=== PATIENT | female | born 1945 | race Hispanic/Latino ===

== ENCOUNTER 2018-10-02 10:00 | Outpatient (CLI) | payer MEDICARE ==
--- NOTE | 2018-10-02 10:39 | XRay Report ---
XRAY CHEST TWO VIEWS: 10/02/18 10:00:00 CLINICAL: Cough. COMPARISON: None FINDINGS: Normal heart and pulmonary vasculature. The lungs are normally expanded and clear.Degenerative change in the spine with multilevel spondylosis area IMPRESSION: No acute cardiopulmonary process.No pneumonia.
== END 2018-10-02 10:01 | disposition home or self-care (01) ==
LOC: SPVIMAG 10:00
DX: R05 Cough (principal); M47.814 Spondylosis without myelopathy or radiculopathy, thoracic region; I10 Essential (primary) hypertension; E66.01 Morbid (severe) obesity due to excess calories; E11.9 Type 2 diabetes mellitus without complications
CPT/HCPCS: 71046

== ENCOUNTER 2019-10-21 13:14 | Outpatient (CLI) | payer MEDICARE ==
--- NOTE | 2019-10-21 13:59 | XRay Report ---
CHEST 2 VIEWS INDICATION / CLINICAL INFORMATION: COUGH. COMPARISON: 10/02/2018. FINDINGS: SUPPORT DEVICES: None. HEART / MEDIASTINUM: No significant abnormality. LUNGS / PLEURA: No significant pulmonary or pleural abnormality. No pneumothorax. ADDITIONAL FINDINGS: No significant additional findings. IMPRESSION: No evidence of acute cardiopulmonary disease. Signer Name: Tim Hoyt MD Signed: 10/21/2019 1:55 PM Workstation Name: [id number]
== END 2019-10-21 13:15 | disposition home or self-care (01) ==
LOC: XRAY 13:14
PROVIDERS: ATTEND Otolaryngology
DX: R05 Cough (principal)
CPT/HCPCS: 71046